=== PATIENT | male | born 1950 | race Caucasian/White ===

== ENCOUNTER → 2017-03-31 | Outpatient (CLI) | payer OTHER | END | disposition home or self-care (01) | LOC: CT 13:39 | DX: M48.07 Spinal stenosis, lumbosacral region (principal); N20.0 Calculus of kidney; M54.16 Radiculopathy, lumbar region; Z98.890 Other specified postprocedural states ==

== ENCOUNTER → 2017-04-18 | Outpatient (CLI) | payer OTHER ==
[2017-04-18 14:30] LABS: BASO # 0.1 10*3/uL (0.0-0.1); BASO % 0.4 % (0.0-1.0); EOS # 0.1 10*3/uL (0.0-0.4); EOS % 0.6 % (1.0-4.0); HEMATOCRIT 46.1 % (42.0-52.0); HEMOGLOBIN 15.4 g/dl (14.0-18.0); LYMPH # 2.9 10*3/uL (1.3-4.4); LYMPH % 24.9 % (27.0-41.0); MEAN CELL VOLUME 95.8 fl (80.0-94.0); MEAN CORPUSCULAR HGB CONC 33.4 g/dl (33.0-37.0); MEAN PLATELET VOLUME 9.4 fl (9.6-12.3); MONO # 0.9 10*3/uL (0.1-1.0); MONO % 7.6 % (3.0-9.0); NEUT # 7.6 10*3/uL (2.3-7.9); NEUT % 66.2 % (47.0-73.0); PLATELET COUNT AUTOMATED 220 10*3/uL (130-400); RED BLOOD COUNT 4.81 10*6/uL (4.50-5.90); RED CELL DISTRI WIDTH 14.8 % (0-14.5); WHITE BLOOD COUNT 11.5 10*3/uL (4.8-10.8)
[2017-04-18 14:34] LABS: BILIRUBIN NEGATIVE (NEGATIVE); BLOOD 1+ (NEGATIVE); CLARITY CLOUDY (CLEAR); COLOR YELLOW (YELLOW); GLUCOSE NEGATIVE (NEGATIVE); KETONE NEGATIVE (NEGATIVE); LEUKO ESTERASE 3+ (NEGATIVE); NITRITE POSITIVE (NEGATIVE)
[2017-04-18 14:49] LABS: ALBUMIN 3.5 gm/dl (3.1-4.5); ALKALINE PHOSPHATASE 101 U/L (45-117); BUN 10 mg/dl (7-24); CHLORIDE 103 mmol/L (98-107); CREATININE 0.99 mg/dL (0.70-1.30); POTASSIUM 3.6 mmol/L (3.5-5.1); SGOT/AST 21 IU/L (3-35); SGPT/ALT 22 U/L (12-78); SODIUM 139 mmol/L (136-145); TOTAL PROTEIN 7.9 gm/dL (6.4-8.2)
[2017-04-18 15:01] LABS: WBC TNTC wbc/hpf (0-5)
== END | disposition home or self-care (01) ==
LOC: LAB 14:02
PROVIDERS: Urology
DX: Z12.5 Encounter for screening for malignant neoplasm of prostate (principal); I10 Essential (primary) hypertension; N39.0 Urinary tract infection, site not specified; D40.0 Neoplasm of uncertain behavior of prostate

== ENCOUNTER → 2017-06-07 | Outpatient (CLI) | payer OTHER | END | disposition home or self-care (01) | LOC: RAD 09:10 | DX: Z01.818 Encounter for other preprocedural examination (principal); M54.16 Radiculopathy, lumbar region ==

== ENCOUNTER 2017-11-25 09:44 | Emergency (ER) | payer OTHER ==
[~2017-11-25] VITALS: Ht 175.2 cm; Wt 81.6 kg
[2017-11-25] MEDS ORDERED: LISINOPRIL20 MG PO (09:48)
[2017-11-25] MEDS ORDERED: FLOMAX0.4 MG PO (09:48)
[2017-11-25 10:23] LABS: BASO % 0.4 % (0.0-1.0); EOS % 0.4 % (1.0-4.0); HEMATOCRIT 53.4 % (42.0-52.0); HEMOGLOBIN 17.7 g/dl (14.0-18.0); LYMPH # 1.9 10*3/uL (1.3-4.4); LYMPH % 16.6 % (27.0-41.0); MEAN CELL VOLUME 99.1 fl (80.0-94.0); MEAN CORPUSCULAR HGB 32.8 pg (27.0-31.0); MEAN CORPUSCULAR HGB CONC 33.1 g/dl (33.0-37.0); MEAN PLATELET VOLUME 9.6 fl (9.6-12.3); MONO # 0.7 10*3/uL (0.1-1.0); MONO % 6.1 % (3.0-9.0); NEUT # 8.5 10*3/uL (2.3-7.9); NEUT % 76.1 % (47.0-73.0); PLATELET COUNT AUTOMATED 212 10*3/uL (130-400); RED BLOOD COUNT 5.39 10*6/uL (4.50-5.90); RED CELL DISTRI WIDTH 12.5 % (0-14.5); WHITE BLOOD COUNT 11.1 10*3/uL (4.8-10.8)
[2017-11-25 10:39] LABS: ALBUMIN 3.8 gm/dl (3.1-4.5); ALKALINE PHOSPHATASE 103 U/L (45-117); BUN 9 mg/dl (7-24); CHLORIDE 104 mmol/L (98-107); CREATININE 0.95 mg/dL (0.70-1.30); SGOT/AST 20 IU/L (3-35); SGPT/ALT 36 U/L (12-78); SODIUM 138 mmol/L (136-145); TOTAL PROTEIN 9.2 gm/dL (6.4-8.2)
[2017-11-25 10:40] LABS: TROPONIN I < 0.015 ng/ml (<0.045)
[2017-11-25 10:41] LABS: POTASSIUM 3.9 mmol/L (3.5-5.1)
[2017-11-25 11:17] LABS: BILIRUBIN NEGATIVE (NEGATIVE); BLOOD 2+ (NEGATIVE); CLARITY SL CLOUDY (CLEAR); COLOR YELLOW (YELLOW); GLUCOSE NEGATIVE (NEGATIVE); KETONE NEGATIVE (NEGATIVE); LEUKO ESTERASE 1+ (NEGATIVE); NITRITE POSITIVE (NEGATIVE); PH 6.5 (5.0-9.0)
[2017-11-25] MEDS ORDERED: ZITHROMAX250 MG PO (11:19)
[2017-11-25] MEDS ORDERED: PROAIR HFA8.5 GM INH (11:19)
[2017-11-25] MEDS ORDERED: PREDNISONE10 MG PO (11:19)
[2017-11-25 11:26] LABS: BACTERIA 1+; URINE AMPHETAMINES < 1000 (1000ng/ml); URINE BARBITURATES < 200 (200ng/ml); URINE BENZODIAZEPINES < 200 (200ng/ml); URINE CANNABINOIDS (THC) < 50 (50ng/ml); URINE COCAINE < 300 (300ng/ml); URINE METHADONE < 300 (300ng/ml); URINE OPIATES < 300 (300ng/ml); WBC 21-30 wbc/hpf (0-5)
[2017-11-25 11:27] LABS: URINE PHENCYCLIDINE < 25 (25ng/ml)
[2017-11-25] MEDS ORDERED: Motrin,Rufen800 MG PO (11:53)
== END 2017-11-25 11:27 | disposition home or self-care (01) ==
LOC: ED 09:44
PROVIDERS: Nurse Practitioner
DX: J18.9 Pneumonia, unspecified organism (principal); I10 Essential (primary) hypertension; Z79.899 Other long term (current) drug therapy

== ENCOUNTER → 2018-01-05 | Outpatient (CLI) | payer OTHER ==
[~2018-01-05] MED LIST: FLOMAX0.4 MG PO; LISINOPRIL20 MG PO; Motrin,Rufen800 MG PO; PREDNISONE10 MG PO; PROAIR HFA8.5 GM INH; ZITHROMAX250 MG PO
== END | disposition home or self-care (01) ==
LOC: CT 10:47
DX: I25.10 Atherosclerotic heart disease of native coronary artery without angina pectoris (principal); I10 Essential (primary) hypertension; F17.200 Nicotine dependence, unspecified, uncomplicated

== ENCOUNTER 2018-10-08 23:17 | Emergency (ER) | payer OTHER ==
[~2018-10-08] VITALS: Ht 172.7 cm; Wt 81.6 kg
[2018-10-09 00:14] LABS: BASO # 0.1 10*3/uL (0.0-0.1); BASO % 0.5 % (0.0-1.0); EOS # 0.2 10*3/uL (0.0-0.4); EOS % 2.1 % (1.0-4.0); HEMATOCRIT 51.2 % (42.0-52.0); HEMOGLOBIN 17.1 g/dl (14.0-18.0); LYMPH # 2.7 10*3/uL (1.3-4.4); LYMPH % 28.9 % (27.0-41.0); MEAN CELL VOLUME 102.2 fl (80.0-94.0); MEAN CORPUSCULAR HGB 34.1 pg (27.0-31.0); MEAN CORPUSCULAR HGB CONC 33.4 g/dl (33.0-37.0); MEAN PLATELET VOLUME 9.7 fl (9.6-12.3); MONO # 0.8 10*3/uL (0.1-1.0); MONO % 8.7 % (3.0-9.0); NEUT # 5.5 10*3/uL (2.3-7.9); NEUT % 59.5 % (47.0-73.0); PLATELET COUNT AUTOMATED 191 10*3/uL (130-400); RED BLOOD COUNT 5.01 10*6/uL (4.50-5.90); RED CELL DISTRI WIDTH 12.8 % (0-14.5); WHITE BLOOD COUNT 9.2 10*3/uL (4.8-10.8)
[2018-10-09] MEDS ORDERED: MOTRIN 600 MG E4 TAB PO (15:13)
[2018-10-10] MEDS ORDERED: METOPROLOL SUCC50 M1 PO (08:55)
[2018-10-10] MEDS ORDERED: AMLODIPINE BESY10 MG PO (08:55)
[2018-10-10] MEDS ORDERED: SIMVASTATIN5 MG PO (08:55)
[2018-10-10] MEDS ORDERED: ASPIRIN ADULT L81 M2 PO (08:55)
== END 2018-10-09 01:19 | disposition home or self-care (01) ==
LOC: ED 23:17
PROVIDERS: Emergency Medicine
DX: R04.0 Epistaxis (principal); F17.200 Nicotine dependence, unspecified, uncomplicated; Z79.899 Other long term (current) drug therapy

== ENCOUNTER 2018-10-09 01:39 | Inpatient (IN) | payer OTHER ==
[~2018-10-09] VITALS: Ht 175.2 cm; Wt 80.8 kg
[2018-10-09] VITALS (10 sets, daily range): BP systolic 136–182; BP diastolic 86–128
--- NOTE | ~2018-10-09 | DS ---
[place], [place] DISCHARGE SUMMARY NAME: CHRISTIAN VALENZUELA [facility] #: [id number] UNIT #: [id number] ROOM: 528 DOCTOR: RUFINO ALVAREZ MD BIRTHDATE: [birth year] DOS: 10/10/2018 DIAGNOSES: 1. Poorly controlled hypertension. 2. Hypertensive encephalopathy. 3. Lacunar infarct, old. 4. Chronic small vessel disease. 5. Multiple aneurysms, bilateral supraclinoid. Patient has also epistaxis, not known to me, comes in with epistaxis and poorly controlled hypertension. Please refer to H and P for details. Patient seems to have some slow mentation, which was initially thought to be related to hypertension, but MRI and MRA were performed, which showed the above mentioned findings. Echocardiogram also showed above mentioned findings. Patient's blood pressure is much better controlled after adjustments in medications. The plan is to therefore discharge him to home. His cholesterol levels are within normal limits, but because of significant history, low dose of simvastatin also has been added. PT/OT will be consulted will go home with visiting nurses discussed with daughter in law in detail. RUFINO ALVAREZ MD CM:DISCHARG [id number] RUFINO ALVAREZ MD 10/17/18 0752 interface
--- NOTE | ~2018-10-09 | WRIGHTHP ---
[place], [place] PATIENT HISTORY AND PHYSICAL EXAM NAME: CHRISTIAN VALENZUELA UNIT #: [id number] ROOM: 528 DOCTOR: RUFINO ALVAREZ MD BIRTHDATE: [birth year] DOS: 10/09/2018 HISTORY OF PRESENT ILLNESS: The patient was admitted this morning on 10/09/2018. The patient is not known to me. As per the family, the patient started having bleeding from his nostril. His pressure was also quite elevated, so he decided to come into the Emergency Room where he was evaluated. They checked him out and discharged him to home. On his way out, he had another large epistaxis and he was again brought back to the ER. This time, his systolic blood pressure was in the 180s and diastolic in the 110 and was admitted. The patient this morning feels okay, does not have any complaints. His mentation seems to be pretty low. The patient states that he does not have any problems with his memories. Denies having any fever, chills, any headaches, any dizziness, lightheadedness. PAST MEDICAL HISTORY: None significant, other than benign hypertension. MEDICATIONS: Lisinopril 20 daily. SOCIAL HISTORY: Nonsmoker, does not use any alcohol. 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 PHYSICAL EXAMINATION: GENERAL: He is awake and alert and oriented. His mentation is slow. VITAL SIGNS: Blood pressure is 160/110, pulse of 78, respirations 20, afebrile. LUNGS: Diminished breath sounds. Clear. HEART: Regular. ABDOMEN: Obese, soft, nontender. EXTREMITIES: Without any edema. ASSESSMENT AND PLAN: 1. Uncontrolled hypertension with encephalopathy. Check an MRI of the brain and readjust medications for better control of the blood pressure. Echocardiogram is also ordered. 2. Epistaxis, possibly from uncontrolled hypertension. The patient is not currently having any episodes. 3. Hypokalemia. Supplementation will be ordered. [place], [place] PATIENT HISTORY AND PHYSICAL EXAM NAME: CHRISTIAN VALENZUELA UNIT #: [id number] ROOM: 528 DOCTOR: RUFINO ALVAREZ MD BIRTHDATE: [birth year] RUFINO ALVAREZ MD CM:HISPHYS:PATIENT HISTORY AND PHYSICAL EXAMINATION [id number] RUFINO ALVAREZ MD 10/09/18 1529 interface
--- NOTE | ~2018-10-09 | EKG ---
[place], [place] ELECTROCARDIOGRAM REPORT NAME: CHRISTIAN VALENZUELA UNIT #: [id number] ROOM: 528 DOCTOR: KANNAN DRAFT REPORT BIRTHDATE: [birth year] [facility] Test Date: 2018-10-09 Test Time: 02:14:20 Pat Name: CHRISTIAN VALENZUELA Department: Room: 528 Gender: M Transplant Coordinator: Sabine Pierson : 1950 Requested By: DECLAN KHAN Order Number: [id number] Reading MD: Keira Short Measurements Intervals [place] Rate: 95 P: DC: QRS: 18 QRSD: 101 T: 59 QT: 403 QTc: 507 Interpretive Statements Atrial fibrillation Low voltage, precordial leads Borderline repolarization abnormality Prolonged QT interval Artifact in lead(s) I,II,III,aVR,aVL,aVF and baseline wander in lead(s) III Electronically Signed On 10-09-2018 4:19:04 PDT by Keira Short CM:EKGRPT:ELECTROCARDIOGRAM REPORT [id number] [id number] DECLAN GARCIA DRAFT REPORT DECLAN KHAN DO
--- NOTE | ~2018-10-09 | PR ---
[place], [place] PROGRESS NOTE NAME: CHRISTIAN VALENZUELA [facility] #: [id number] UNIT #: [id number] ROOM: 528 DOCTOR: RUFINO ALVAREZ MD BIRTHDATE: [birth year] DOS: 10/10/2018 SUBJECTIVE: The patient is doing about the same, does not have any new complaints. OBJECTIVE: VITAL SIGNS: Blood pressure is 129/78, pulse is 70, respirations 14, temperature 97.6. LUNGS: Clear. HEART: Regular. ABDOMEN: Obese, soft. EXTREMITIES: Without any edema. Echocardiogram showed normal LV function. No major valvular heart disease was noted. Consider LVH with grade I diastolic dysfunction. MRA of the head and MRI of the brain show significant bilateral ICA aneurysm with multiple strokes and chronic small vessel disease. ASSESSMENT AND PLAN: Hypertensive encephalopathy with blood pressures well controlled, but unfortunately MRA and MRI showing multiple cerebrovascular accidents and the patient will need a consultation with Neurosurgery as an outpatient. We placed the patient on aspirin 325 as well as simvastatin 5 mg as well as the blood pressure medication. The patient is stable. The plan is to discharge him today. RUFINO ALVAREZ MD CM:PNTRANS [phone] RUFINO ALVAREZ MD 10/17/18 0754 interface
[2018-10-09 02:46] LABS: ALBUMIN 3.6 gm/dl (3.1-4.5); ALKALINE PHOSPHATASE 88 U/L (45-117); BUN 22 mg/dl (7-24); CHLORIDE 106 mmol/L (98-107); CREATININE 0.84 mg/dL (0.70-1.30); POTASSIUM 3.4 mmol/L (3.5-5.1); SGOT/AST 27 IU/L (3-35); SGPT/ALT 32 U/L (12-78); SODIUM 143 mmol/L (136-145); TOTAL PROTEIN 7.8 gm/dL (6.4-8.2); TROPONIN I < 0.015 ng/ml (<0.045)
[2018-10-09 05:33] LABS: CHOLESTEROL 158 mg/dL (<200); HDL CHOLESTEROL 47 mg/dl (40-60); LDL CHOLESTEROL 93 mg/dL (9-159); TRIGLYCERIDES 91 mg/dl (<150); VLDL CHOLESTEROL 18 mg/dL (6-40)
--- NOTE | 2018-10-09 08:06 | NUR ---
PHYSICAL THERAPY Nursing screen received. Chart review complete. PAtient admitted for Epistaxis. Recommend normal daily mobility with nursing prn. If difficulties with mobilty arise, please order PT when medically appropriate. Thank you. Kamala Verde,PT
--- NOTE | 2018-10-09 08:19 | NUR ---
PT RESTING IN BED. NO DISTRESS NOTED. NO VOICED C/O. AT THIS TIME WILL MONITOR
--- NOTE | 2018-10-09 08:45 | NUR ---
DR ALVAREZ HERE AND AWARE OF PT BP. NEW ORDERS RECEIVED
--- NOTE | 2018-10-09 14:14 | NUR ---
DR ALVAREZ CALLED AND NOTIFIED OF MRI BRAIN
[2018-10-09] MEDS ORDERED: MOTRIN 600 MG E4 TAB PO (15:13)
--- NOTE | 2018-10-09 15:14 | NUR ---
Community Educator in to talk to patient. Patient states lives at home alone with his son and [id number] living behind him. There are 3 steps in the home. Physician: Dr. Parvez Oates Pharmacy: [facility] health services: none Patient's level of ADLs: MINIMAL ASSIST Patient has working utilities: yes DME: none Follow-up physician's appointment after d/c: he prefers to make his own follow up appt after discharge Does patient want to access PORTAL?: no Discharge plan discussed with [id number] who is at the bedside. She states he lives at home alone with her and his son checking in on him. She states needs minimal assistance with his ADLs and ambulation but he refuses to let family help him. Discussed short term SNF and home health care services and she states he will not be agreeable to either. When medically stable he will be discharged to home. She requested MPOA papers. MPOA papers given to [id number] and instructed she needs to people to sign or have it notarized. She verbalized an understanding. SONU CONTRERAS
--- NOTE | 2018-10-09 15:22 | NUR ---
pt sitting up in bed no distress noted. will monitor
--- NOTE | 2018-10-09 16:56 | NUR ---
DR ALVAREZ CALLED AND NOTIFIED OF MRA RESULTS
--- NOTE | 2018-10-09 19:30 | NUR ---
REPORT RECIEVED FROM DAY SHIFT RN. PT IS RESTING IN BED AT THIS TIME. FAMILY IS AT THE BEDSIDE. HE VOICES NO COMPLAINTS AT THIS TIME. RESPIRATIONS ARE EASY AND NONLABORED. BED IS LOCKED AND IN THE LOWEST POSITION, CALL LIGHT IS WITHIN REACH. WILL CONTINUE TO MONITOR PT.
[2018-10-10] VITALS: BP 101/65
[2018-10-10 03:39] VITALS: BP 129/78
--- NOTE | 2018-10-10 07:52 | NUR ---
PT RESTING IN BED. NO DISTRESS NOTED. WILL MONITOR DTR IN LAW AT BEDSIDE
[2018-10-10 08:00] VITALS: BP 142/92; BP 147/92
--- NOTE | 2018-10-10 08:30 | NUR ---
Online Services Manager in to see patient. No new needs or request at this time. He denies any home needs. When medically stable he will be discharged to home.
--- NOTE | 2018-10-10 08:46 | NUR ---
DR ALVAREZ IN TO SEE PT AND PT DTR IN LAW
[2018-10-10] MEDS ORDERED: ASPIRIN ADULT L81 M2 PO (08:55)
[2018-10-10] MEDS ORDERED: SIMVASTATIN5 MG PO (08:55)
[2018-10-10] MEDS ORDERED: AMLODIPINE BESY10 MG PO (08:55)
[2018-10-10] MEDS ORDERED: METOPROLOL SUCC50 M1 PO (08:55)
[2018-10-10 12:00] VITALS: BP 147/90
--- NOTE | 2018-10-10 14:30 | NUR ---
Discharge instructions reviewed with patient/family. Patient receptive and verbalizes understanding. Follow-up care arranged. Written instructions given to patient/family. AHMET RILEY
== END 2018-10-10 14:30 | disposition home or self-care (01) | DRG 78 ==
LOC: ED 01:39 → 5E 03:01 → EDHOLD 03:01 → 5E 03:09
PROVIDERS: Emergency Medicine; ADMIT Internal Medicine
DX: I67.4 Hypertensive encephalopathy (principal); I16.1 Hypertensive emergency; I67.1 Cerebral aneurysm, nonruptured; E87.6 Hypokalemia; I73.9 Peripheral vascular disease, unspecified; R04.0 Epistaxis; Z86.73 Personal history of transient ischemic attack (TIA), and cerebral infarction without residual deficits; Z87.01 Personal history of pneumonia (recurrent)

== ENCOUNTER → 2021-10-30 | Outpatient (CLI) | payer MEDICARE ==
[~2021-10-30] MED LIST changes: +AMLODIPINE BESY10 MG PO; +ASPIRIN ADULT L81 M2 PO; +METOPROLOL SUCC50 M1 PO; +MOTRIN 600 MG E4 TAB PO; +SIMVASTATIN5 MG PO
== END | disposition home or self-care (01) ==
LOC: US 10-15 08:30
PROVIDERS: ATTEND Family Medicine
DX: I71.4 Abdominal aortic aneurysm, without rupture (principal)